=== PATIENT | female | born 1995 | race American Indian/Alaskan Native ===

== ENCOUNTER 2020-10-25 19:40 | Emergency (ER) | payer SELFPAY ==
[2020-10-26 00:23] VITALS: BP 126/72
== END 2020-10-26 00:20 | disposition home or self-care (01) ==
LOC: ED 19:40
DX: M62.830 Muscle spasm of back (principal); M54.5 Low back pain; Z79.899 Other long term (current) drug therapy; V89.2XXA Person injured in unspecified motor-vehicle accident, traffic, initial encounter; Y93.89 Activity, other specified; Y92.488 Other paved roadways as the place of occurrence of the external cause; Y99.8 Other external cause status
CPT/HCPCS: 72100; 99283